=== PATIENT | male | born 1990 | race Caucasian/White ===

== ENCOUNTER 2017-10-20 13:48 | Emergency (ER) | payer MEDICAID ==
[~2017-10-20] VITALS: Ht 185.4 cm; Wt 111.1 kg
[2017-10-20 13:50] VITALS: BP 135/94
[2017-10-20] MEDS ORDERED: HYDROCODONE/APAP 5/325MG 1 EACH TABLET ONE (14:36)
[2017-10-20] MEDS ORDERED: HYDROCODONE/APAP 5/325MG 1 EACH TABLET PO ONE (15:00)
== END 2017-10-20 14:46 | disposition home or self-care (01) ==
LOC: ER 14:09
DX: M54.5 Low back pain (principal); G89.29 Other chronic pain; F17.200 Nicotine dependence, unspecified, uncomplicated; Z98.890 Other specified postprocedural states
CPT/HCPCS: 99283; A4606; Z7610

== ENCOUNTER 2017-10-27 15:21 | Emergency (ER) | payer MEDICAID ==
[~2017-10-27] VITALS: Ht 185.4 cm; Wt 113.4 kg
[2017-10-27 17:12] VITALS: BP 142/95
[2017-10-27] MEDS ORDERED: oxyCODONE/APAP (5/325 MG) 1 UDTAB TABLET PO ONE (17:30)
[2017-10-27] MEDS ORDERED: IBUPROFEN 600 MG TABLET PO ONE ×2 (17:30→17:35)
[2017-10-27] MEDS ORDERED: oxyCODONE/APAP (5/325 MG) 1 UDTAB TABLET ONE (17:35)
--- NOTE | 2017-10-27 17:39 | NUR ---
Patient discharged to home in stable condition. Written and verbal after care instructions given. Patient verbalizes understanding of instruction.
== END 2017-10-27 17:40 | disposition home or self-care (01) ==
LOC: ER 15:23
DX: S83.8X2A Sprain of other specified parts of left knee, initial encounter (principal); F17.200 Nicotine dependence, unspecified, uncomplicated; Z98.890 Other specified postprocedural states; X58.XXXA Exposure to other specified factors, initial encounter; Y93.89 Activity, other specified; Y92.89 Other specified places as the place of occurrence of the external cause; Y99.8 Other external cause status
CPT/HCPCS: 99283; A4606; Z7610

== ENCOUNTER 2020-09-06 14:07 | Emergency (ER) | payer MEDICAID ==
[~2020-09-06] VITALS: Ht 185.4 cm; Wt 108.9 kg
--- NOTE | 2020-09-06 14:23 | NUR ---
BIB SELF C/O PELVIC PAIN 03/02.VS CHECKED. AWAITING MD PULIDO.
[2020-09-06] MEDS ORDERED: DIAZEPAM 5 MG TABLET ONE ×2 (14:42→16:29)
[2020-09-06] MEDS ORDERED: ACETAMINOPHEN ES 500 MG TABLET ONE (14:43)
--- NOTE | 2020-09-06 14:43 | NUR ---
PT STILL UNABLE TO PROVIDE URINE SAMPLE. HE STATED THAT HE JUST PEED EARLIER BEFORE HE CAME IN. PT WAS GIVEN SOME WATER..
[2020-09-06] MEDS ORDERED: ACETAMINOPHEN 325 MG TABLET PO ONE (15:00)
[2020-09-06] MEDS ORDERED: DIAZEPAM 5 MG TABLET PO ONE ×2 (15:00→16:00)
--- NOTE | 2020-09-06 15:31 | NUR ---
PT STATED HE IS STILL UNABLE TO PEE RIGHT NOW. MADE AWARE.
--- NOTE | 2020-09-06 15:40 | NUR ---
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
[2020-09-06 16:27] LABS: BILIRUBIN,URINE NEGATIVE (NEGATIVE); BLOOD, URINE NEGATIVE Ery/uL (NEGATIVE); COLOR,URINE YELLOW (YELLOW); LEUKOCYTE ESTERASE ,URINE NEGATIVE (NEGATIVE); NITRITE, URINE NEGATIVE (NEGATIVE); PROTEIN,URINE NEGATIVE (NEGATIVE); UGLUCOSE NEGATIVE (NEGATIVE); UROBILINOGEN,URINE 0.2 EU/dL (0.2)
[2020-09-06 16:44] VITALS: BP 138/81
--- NOTE | 2020-09-06 16:44 | NUR ---
Patient discharged to home in stable condition. Written and verbal after care instructions given. Patient verbalizes understanding of instruction.
== END 2020-09-06 16:45 | disposition home or self-care (01) ==
LOC: ER 14:11
DX: S39.011A Strain of muscle, fascia and tendon of abdomen, initial encounter (principal); Z98.890 Other specified postprocedural states; X58.XXXA Exposure to other specified factors, initial encounter; Y93.67 Activity, basketball; Y92.89 Other specified places as the place of occurrence of the external cause; Y99.8 Other external cause status
CPT/HCPCS: 72190-TC; 81001; 87086-TC